=== PATIENT | male | born 1940 | race Caucasian/White ===

== ENCOUNTER 2022-05-17 12:04 | Observation (INO) | payer MEDICARE, BC ==
[~2022-05-17] VITALS: Ht 167.6 cm; Wt 73.9 kg
[~2022-05-17 12:04] MED LIST: ATORVASTATIN CA20 MG PO; COREG 12.5MG12.5 MG PO; ECOTRIN81 MG PO; IBUPROFEN600 MG PO; LISINOPRIL-HCT1 EACH PO; NEURONTIN 300300 MG PO
[2022-05-17 13:09] LABS: RED BLOOD COUNT 4.96 M/UL (4.20-5.50)
[2022-05-17 13:39] LABS: BUN/CREATININE RATIO 18 (0-10)
[2022-05-18 00:40] LABS: RED BLOOD COUNT 4.75 M/UL (4.20-5.50); WHITE BLOOD COUNT 13.8 K/UL (4.5-11.0)
[2022-05-18 01:00] LABS: BUN/CREATININE RATIO 19 (0-10)
[2022-05-18 06:19] LABS: HEMOGLOBIN 16.2 gm/dl (14.0-17.5); RED BLOOD COUNT 4.79 M/UL (4.20-5.50); WHITE BLOOD COUNT 13.7 K/UL (4.5-11.0)
[2022-05-18 06:53] LABS: BUN/CREATININE RATIO 18 (0-10)
[2022-05-18] MEDS ORDERED: DONEPEZIL HCL10 MG PO (12:40)
[2022-05-19 03:19] LABS: HEMOGLOBIN 16.5 gm/dl (14.0-17.5); RED BLOOD COUNT 4.92 M/UL (4.20-5.50); WHITE BLOOD COUNT 16.6 K/UL (4.5-11.0)
[2022-05-19 04:08] LABS: BUN/CREATININE RATIO 22 (0-10)
[2022-05-20 07:12] LABS: HEMOGLOBIN 15.3 gm/dl (14.0-17.5); RED BLOOD COUNT 4.65 M/UL (4.20-5.50); WHITE BLOOD COUNT 13.6 K/UL (4.5-11.0)
[2022-05-20 07:34] LABS: BUN/CREATININE RATIO 24 (0-10)
== END 2022-05-20 12:01 | disposition home or self-care (01) ==
LOC: ER1 12:04 → M/S 05-18 08:04 → CDU 05-18 08:04 → M/S 05-18 12:25
PROVIDERS: Internal Medicine; Nurse Practitioner; Physician Assistant; ADMIT Surgery
PROC: BF131ZZ Fluoroscopy of Gallbladder and Bile Ducts using Low Osmolar Contrast (ICD-10-PCS; 2022-05-18)
PROC: 0FT40ZZ Resection of Gallbladder, Open Approach (ICD-10-PCS; principal; 2022-05-18 08:00)
DX: K80.12 Calculus of gallbladder with acute and chronic cholecystitis without obstruction (principal); K82.A1 Gangrene of gallbladder in cholecystitis; I10 Essential (primary) hypertension; E78.5 Hyperlipidemia, unspecified; F03.90 Unspecified dementia, unspecified severity, without behavioral disturbance, psychotic disturbance, mood disturbance, and anxiety; I48.91 Unspecified atrial fibrillation; Z88.2 Allergy status to sulfonamides; Z79.82 Long term (current) use of aspirin; Z79.899 Other long term (current) drug therapy; Z20.822 Contact with and (suspected) exposure to COVID-19
CPT/HCPCS: 0240U; 36415; 71045; 76705; 80048; 80053; 81001; 82550; 82553; 83605; 84484; 85025; 87040; 93005; 96374; 96375; 99285; C1729; G0378; J0360; J1100; J2001; J2060; J2185; J2270; J2370; J2405; J2704; J3010; Q9967

== ENCOUNTER 2022-05-24 16:27 | Emergency (ER) | payer MEDICARE, BC ==
[~2022-05-24 16:27] MED LIST changes: +DONEPEZIL HCL10 MG PO
[2022-05-24 17:39] LABS: HEMOGLOBIN 15.5 gm/dl (14.0-17.5); RED BLOOD COUNT 4.55 M/UL (4.20-5.50); WHITE BLOOD COUNT 16.9 K/UL (4.5-11.0)
[2022-05-24 18:04] LABS: BUN/CREATININE RATIO 16 (0-10)
[2022-05-24] MEDS ORDERED: OMNICEF 300 MG300 MG PO (20:08)
== END 2022-05-24 20:33 | disposition home or self-care (01) ==
LOC: ER1 16:27
PROVIDERS: Student in an Organized Health Care Education/Training Program
DX: S09.90XA Unspecified injury of head, initial encounter (principal); S30.1XXA Contusion of abdominal wall, initial encounter; I48.91 Unspecified atrial fibrillation; I10 Essential (primary) hypertension; Z90.49 Acquired absence of other specified parts of digestive tract; Z88.2 Allergy status to sulfonamides; W19.XXXA Unspecified fall, initial encounter; Y92.009 Unspecified place in unspecified non-institutional (private) residence as the place of occurrence of the external cause
CPT/HCPCS: 70450; 71045; 80053; 81001; 82550; 82553; 83690; 84484; 85025; 87086; 93005; 99284